=== PATIENT | female | born 1990 | race Caucasian/White ===

== ENCOUNTER 2019-05-31 03:20 | Outpatient (CLI) | payer BC, SELFPAY ==
[2019-05-31 04:02] VITALS: BMI 31.4
--- NOTE | 2019-06-06 23:39 | OB.TRI.NOTE ---
History of Present Illness Date of Service: 05/31/19 Was patient seen by the physician?: No Reason For Visit: RULE OUT LABOR Date of Service: 05/31/19 Final REZA: 06/13/19 Final REZA Source: US <20 weeks Gestational age: 39 Weeks and 0 Days Allergies No Known Allergies Allergy (Verified 05/31/19 04:03) NST - FHR Rate Baby A Baseline: 130 Variability:: Moderate Accelerations:: 15 x 15 Decelerations:: None NST Reactive:: Yes Uterine Activity:: Irregular Impression/Plan Reactive NST for false labor
== END 2019-05-31 04:10 | disposition home or self-care (01) ==
LOC: WPOUT 03:55 → WP 03:56
PROVIDERS: Visit Provider Obstetrics & Gynecology
DX: O47.1 False labor at or after 37 completed weeks of gestation (principal); Z3A.39 39 weeks gestation of pregnancy
CPT/HCPCS: 59025; 59050; 99218; G0378

== ENCOUNTER 2019-06-11 00:47 | Inpatient (IN) | payer BC, SELFPAY ==
[2019-06-11 00:38] VITALS: BMI 31.8
[2019-06-11 00:43] LABS: ROM Internal Control Test YES-OK TO RESULT pt. (Internal QC)
[2019-06-11 00:44] LABS: ROM Patient Test POSITIVE (Negative)
[2019-06-11] MEDS: Lactated Ringers 1,000 ML 50 ML IV ×3 (01:30→07:21)
[2019-06-11 01:47] LABS: Absolute Lymphocyte Count 2.57 X10^3/uL (0.83-4.51); Absolute Neutrophil Count 7.6 X10^3/uL (2.0-7.7); Basophil# 0.03 X10^3/uL; Basophil% 0.3 % (0-1); Eosinophil# 0.23 X10^3/uL; Hematocrit 34.4 % (37-47); Hemoglobin 11.8 g/dL (12.0-15.0); Lymphocyte # 2.57 X10^3/ul (4.0); Lymphocyte % 22.3 % (19-41); Mean Corp Hgb Conc 34.3 g/dL (32-36); Mean Corpuscular Hgb 30.3 pg (27.0-32.0); Mean Corpuscular Volume 88.4 fL (81-99); Mean Platelet Vol. 10.4 fl (6.2-12.0); Monocyte# 1.03 X10^3/uL; Monocyte% 8.9 % (0-10); NRBC Flagged by Analyzer 0 % (0-5); Neutrophil # 7.58 X10^3/uL (2.7-7.7); Neutrophil % 65.8 % (47-70); Platelet Count 218 K/mm3 (150-450); RBC Distribution Width CV 14.5 % (11.6-14.6); RBC Distribution Width SD 45.8 fl (35.1-43.9); Red Blood Count 3.89 M/mm3 (4.2-5.4); White Blood Count 11.5 K/mm3 (4.4-11.0)
[2019-06-11] MEDS: 0.9% Saline Lock 10 ML Syringe IV (02:09)
--- NOTE | 2019-06-11 02:25 | HP.PCM_ITS ---
History Date of Admission: 05/21/17 Final REZA: 06/13/19 Final REZA Source: LMP Gestational age: 39 Weeks and 5 Days History of this : This is a 29 year-old, 2 para 1-0-0-1 at 39-5/7 weeks gestation since complaining of spontaneous rupture membranes beginning approximately 9 PM on 06/10/2019. Her EDC is 06/13/2019 by last menstrual period confirmed by first trimester ultrasound. Her is uncomplicated to date. She is having some contractions and they are increasing in intensity. She denies any gross vaginal bleeding. She has a history of one previous spontaneous vaginal delivery 40 weeks 6 days of a 7 pound 10 ounce without complications. Allergies No Known Allergies Allergy (Verified 06/11/19 00:39) Home Medications: Home Medications Vit No.130/Iron/Folic [ Tablet] 1 tab PO DAILY 05/21/17 Smoking Status: Never smoker Alcohol: None Number of Fetus(es): 1 Heart Tracing: Normal baseline, moderate variability, spontaneous accelerations. No decelerations. Tocometer shows contractions that are somewhat irregular History Past Pregnancies: Past Pregnancies Delivery Date Name GA/Weeks Outcome Route Weight Gender Labor Length Anesthesia Delivery Location Provider FOB Expected Infant Delivery Method: Spontaneous Vaginal Review of Systems Constitutional: Denies: Chills, Fever Cardiovascular: Denies: Chest Pain Respiratory: Denies: Cough Genitourinary: Denies: Dysuria Skin: Denies: Rash Neurological: Denies: Slurred speech Psychiatric: Denies: Anxiety, Depression Hematologic/ Lymphatic: Denies: Hx of blood clot Physical Exam General: Alert, Cooperative, No apparent distress Cardiovascular: Regular Rhythm Lungs: Normal air movement Abdomen: Soft, Non-Distended, Gravid, Appropriate for Gestational Age Extremities:: Other - edema -trace MIDDLE STITCHER: Normal external genitalia Estimated gestational size: Appropriate for gestational size Presentation: Cephalic Cervix Dilation (cm): 2 - posterior, firm, forebag ruptured Station: -3 Effacement (%): 75 Assessment/Plan This is a 29 year-old, para 2 para 1 at 39-5/7 weeks gestation with spontaneous rupture membranes in early labor. Will initiate Pitocin augmentation. May have Nubain, nitrous oxide or epidural as needed for pain control. Estimated weight is less than 4500 g clinically and pelvis clinically adequate to expect vaginal delivery.
[2019-06-11] MEDS: Oxytocin 30 units/NS 500 ml 30 UNITS/500 ML IV.SOLN IV (03:08)
[2019-06-11 03:53] LABS: HIV - WCH Non-Reactive (Nonreactive)
[2019-06-11] MEDS: fentaNYL-bupivacaine (epidural) 100 ML BAG EPIDURAL (05:17)
[2019-06-11] MEDS: Oxytocin 30 units/NS 500 ml 30 UNITS/500 ML IV.SOLN 334 UNITS IV (10:56)
--- NOTE | 2019-06-11 11:12 | PCM.OPRPT ---
Vaginal Delivery Maternal Presentation: Active Labor Amniotic Membrane Rupture Type: Spontaneous at home Amniotic Fluid Description: Clear Final REZA: 06/13/19 Final REZA Source: US <20 weeks Gestational age: 39 Weeks and 5 Days Date of Procedure: 06/11/19 Pre-Operative Diagnosis: labor Post-Operative Diagnosis: same, mild shoulder dystocia Surgery/ Procedure Performed: Spontaneous Vaginal Delivery Type of Anesthesia: Epidural Description of Procedure: A vigorous male was delivered RAY over a second-degree perineal laceration. The shoulders did not immediately deliver with maternal pushing efforts. I had nurses reposition the patient's leg and had the patient push again. The anterior nor the posterior shoulder was delivered easily. And then had the patient placed in modified [place] position. The shoulder still did not dislodge. The right shoulder was the anterior shoulder. Suprapubic pressure was then initiated. I was able to reach my hand up and push the anterior shoulder slightly forward in the shoulder dislodged and then delivered easily. Total elapsed time from head delivery to shoulder delivery and delivery was 60 seconds. The Pitocin infusion was initiated for active management of the third stage. The cord was clamped and cut after 1 minute. The was attended to by the waiting nursing staff. The placenta was delivered spontaneously and intact. The cervix and vagina were intact. The second-degree perineal laceration was repaired with 3-0 Vicryl suture in a running standard fashion. Sponge and needle counts were correct. A vaginal sweep was completed by me. Presentation: RAY Placental Delivery Description: Spontaneous Placenta Disposition: [facility] Cord Vessel Description: 3 Vessels Cord Gases drawn per routine: ABG, VBG Cord Entanglement: None Drain: Douglass to straight drain Infant A gender: Male (1 minute): 7 (5 minute): 9 Episiotomy Description: None Laceration: 2nd degree Medications given after delivery: IV Pitocin Complications: None
[2019-06-11] MEDS: Oxytocin 30 units/NS 500 ml 30 UNITS/500 ML IV.SOLN 167 UNITS IV (11:26)
[2019-06-11 16:00] VITALS: BP 123/71; PULSE 93; RESP 16; TEMP 36.6
[2019-06-11] MEDS: Naproxen 250 MG Tablet 500 MG PO (17:43)
[2019-06-11 19:35] VITALS: BP 115/66; PULSE 90; RESP 20; TEMP 36.4
[2019-06-11] MEDS: Acetaminophen 500 MG Tablet 1000 MG PO (23:12)
[2019-06-11 23:15] VITALS: BP 119/68; PULSE 76; RESP 18; TEMP 36.3
[2019-06-12 04:35] VITALS: BP 89/54; PULSE 73; RESP 18; TEMP 36.3
--- NOTE | 2019-06-12 06:42 | PCM.PN.OB ---
Subjective: pain well controlled, average lochia - Physical Exam General: Alert, Cooperative, No apparent distress Vital Signs Temp Pulse Resp BP 97.4 F L 73 18 89/54 L 06/12/19 04:35 06/12/19 04:35 06/12/19 04:35 06/12/19 04:35 Oxygen Delivery Method Room Air Weight: 89.358 kg Body Mass Index (BMI) 31.8 Intake and Output for Last 24 Hours 06/10/19 06/11/19 06/12/19 23:59 23:59 23:59 Intake Total 3659 / 3659 Output Total 1900 / 1900 Balance 1759 / 1759 Medical Necessity - Tobacco Use Smoking Status: Never smoker Assessment/Plan PPD#1 s/p infant and doing well likely home today
--- NOTE | 2019-06-12 06:44 | DCINST_ITS ---
Discharge Diet: No Restrictions Discharge Activity: Return to Normal Activity, May not drive while taking narcotic pain medications., May Shower May resume sexual activity in: 4-6 weeks Additional Activity Instructions:: Nothing in the vagina for 4-6 weeks. You may return to work/school in 6 weeks. Call your doctor if your incision/area has: Continuous Slow Oozing, Sudden Increased Bleeding, Increased Pain/ Swelling, Increased Redness, Foul Smelling Discharge Additional Instructions: If you experience any of the following, contact your healthcare provider. * Bleeding that soaks a pad every hour for 2 hours * Fever 100.4 or higher * Unrelieved incision or abdominal pain * Swelling, redness, discharge or bleeding from your incision or episiotomy site * Your incision begins to separate * Problems urinating (including inability to urinate or burning while urinating). * Visual changes * Severe headache * Flu-like symptoms * Pain or redness in one of both of your breasts * Pain, warmth, tenderness or swelling in your legs, especially the calf area * Frequent nausea and vomiting * Symptoms of depression or anxiety If you experience any of the following, call 911 or go to the nearest Emergency Room. * Chest pain * Problems breathing * Seizure activity * Partial or complete paralysis of a body part, slurred speech, weakness or drooping of the face, or a sudden inability to walk or hold your balance Allergies/Adverse Reactions: Allergies No Known Allergies Allergy (Verified 06/11/19 00:39) Medications to take at Discharge Vit No.130/Iron/Folic [ Tablet] 1 tab PO DAILY 05/21/17 Ibuprofen [Motrin] 600 mg PO Q6H PRN #60 tab 06/12/19 The following prescriptions were given: Ibuprofen [Motrin] 600 mg PO Q6H PRN #60 tab PRN Reason: Pain Transmission Status: Pending to [id number] Please Follow Up With: Kavita Amaya MD - [phone] When: Call to make an appointment with your doctor in 1-2 and 6 weeks or as needed Test Results: Test results from this visit will be discussed in further detail at your follow- up appointment, if applicable.
[2019-06-12 09:44] VITALS: BP 116/59; PULSE 83; RESP 18; TEMP 36.6
[2019-06-12 14:00] VITALS: BP 118/56; PULSE 86; RESP 18; TEMP 36.9
== END 2019-06-12 17:30 | disposition home or self-care (01) | DRG 807 ==
LOC: WPOUT 00:52
PROVIDERS: Admitting Provider Obstetrics & Gynecology; Visit Provider Obstetrics & Gynecology
DX: O66.0 Obstructed labor due to shoulder dystocia (principal); Z37.0 Single live birth; O70.1 Second degree perineal laceration during delivery; Z3A.39 39 weeks gestation of pregnancy
CPT/HCPCS: 59025; 59050; 84112; 85025; 86703; 86850; 86900; 99218; J7120; A4216; G0378

== ENCOUNTER 2022-09-11 13:30 | Outpatient (CLI) | payer OTHER, SELFPAY ==
[2022-09-11 13:38] VITALS: BMI 31.9
[2022-09-11 13:57] VITALS: PULSE 110; TEMP 36.9; O2SAT 98
[2022-09-11 13:58] VITALS: BP 118/75; PULSE 114
[2022-09-11 14:27] LABS: ROM Internal Control Test YES-OK TO RESULT pt. (Internal QC); ROM Patient Test Negative (Negative)
--- NOTE | 2022-09-11 14:40 | OB.TRI.HP_ITS ---
HPI - General HPI Narrative PABLO TAPIA, is a 32 F at 34.6 weeks gestation who presents to triage with leaking of fluid. Patient reports starting yesterday she noticed some wetness in her underwear. Cannot tell if her water is leaking or urine. Continues to have sporadic leaking today. Denies any vaginal bleeding or contractions. Positive movement. No history of labor or deliveries. Current has been uncomplicated. Maternal Data Information REZA Calculator Estimated Delivery Date Method Current WG Current Estimate 10/17/22 Manual 34w 6d PFSH PFSH Home Medications vits no.130-ferrous fum 27 mg iron-folic acid 800 mcg tablet ( Vitamin) 1 tab PO DAILY 05/21/17 [History Last Taken 06/10/19] omeprazole 20 mg PO.IVFORM DAILY 09/11/22 [History Last Taken Unknown] Allergy/AdvReac Type Severity Reaction Status Date / Time No Known Allergies Allergy Verified 06/11/19 00:39 Social History Smoking Status: Never smoker History Elective abortions Hx Para 1 Spontaneous abortions Hx # Term Pregnancies Ectopic pregnancies Hx # Pregnancies Multiple births # of living children Visit Details OB Flowsheet Initial Weight: Not Recorded Date -?-?-?-?-?-?-?-?-?-?-?-?- EGA Weight BP Urine Prot -?-?-?-?-?-?-?-?-?-?-?-?- Glucose FHR FuHt Pres Dilation -?-?-?-?-?-?-?-?-?-?-?-?- Effaced St Visit Note 09/11/22 -?-?-?-?-?-?-?-?-?-?-?-?- 34w 6d 198 lb 118/75 -?-?-?-?-?-?-?-?-?-?-?-?- -?-?-?-?-?-?-?-?-?-?-?-?- ROS Eyes Eyes: Denies blurry vision Cardiovascular Cardiovascular: Reports none; Denies chest pain at rest, chest pain with activity or dizziness Respiratory/Chest Respiratory/Chest: Denies cough or dyspnea Gastrointestinal Gastrointestinal: Reports none and other; Denies diarrhea or vomiting Genitourinary Genitourinary: Denies dysuria Musculoskeletal Musculoskeletal: Reports none Integumentary Integumentary: Reports none; Denies rash Neurologic Neurologic: Denies dizziness, headache(s) or other visual disturbances Psychiatric Psychiatric: Reports none Physical Exam Const alert and no apparent distress General Appearance: cooperative Orientation / Consciousness: awake Exam Limitations: no limitations HEENT normocephalic Eyes General Eye: normal appearance of both eyes Neck full ROM Chest inspection of chest normal Resp normal respiratory effort and normal air movement Effort and Inspection: symmetric chest movement Auscultation: clear to auscultation bilaterally Cardio regular rate GI soft to palpation, non-tender and non-distended Inspection: and other Back/Spine normal ROM Extremity full ROM, normal capillary refill and no calf tenderness Skin no rashes or lesions noted Neuro oriented x3 and CN's II-XII intact bilaterally Psych mental status grossly normal Assessment & Plan (1) 34 weeks gestation of : (2) Leakage of amniotic fluid: PLAN: Plan Cat. 1 tracing - NST reactive 2 contractions noted via TOCO- patient denies feeling any of these contractions ROM plus- negative D/C home with follow up this week in office Dr. Amaya notified of patient status
== END 2022-09-11 14:45 | disposition home or self-care (01) ==
LOC: WPOUT 13:37 → WP 13:38
PROVIDERS: PCP Internal Medicine; Referring Provider Advanced Practice Midwife; Visit Provider Advanced Practice Midwife
DX: O42.913 Preterm premature rupture of membranes, unspecified as to length of time between rupture and onset of labor, third trimester (principal); O09.10 Supervision of pregnancy with history of ectopic pregnancy, unspecified trimester; Z3A.34 34 weeks gestation of pregnancy
CPT/HCPCS: 59025; 59050; 84112; 99218; G0378

== ENCOUNTER 2022-10-11 07:10 | Inpatient (IN) | payer OTHER, SELFPAY ==
[2022-10-11] VITALS (67 sets, daily range): BP systolic 73–145; BP diastolic 39–85; PULSE 72–126; TEMP 36.1–37.1; O2SAT 80–100; BMI 27.7
[2022-10-11] MEDS: Lactated Ringers 1,000 ML 50 ML IV (07:45)
[2022-10-11 08:05] LABS: Absolute Lymphocyte Count 2.34 X10^3/uL (0.83-4.51); Absolute Neutrophil Count 6.6 X10^3/uL (2.0-7.7); Basophil# 0.04 X10^3/uL; Basophil% 0.4 % (0-1); Eosinophil# 0.25 X10^3/uL; Eosinophils% 2.4 % (0-5); Hematocrit 34.7 % (37-47); Hemoglobin 11.8 g/dL (12.0-15.0); Lymphocyte # 2.34 X10^3/ul (0.83-4.51); Lymphocyte % 22.7 % (19-41); Mean Corpuscular Hgb 28.9 pg (27.0-32.0); Mean Corpuscular Volume 84.8 fL (81-99); Mean Platelet Vol. 9.7 fl (6.2-12.0); Monocyte# 1.06 X10^3/uL; Monocyte% 10.3 % (0-10); NRBC Flagged by Analyzer 0 % (0-5); Neutrophil # 6.59 X10^3/uL (2.7-7.7); Neutrophil % 63.7 % (47-70); Platelet Count 240 K/mm3 (150-450); RBC Distribution Width CV 13.7 % (11.6-14.6); RBC Distribution Width SD 41.9 fl (35.1-43.9); Red Blood Count 4.09 M/mm3 (4.2-5.4); White Blood Count 10.3 K/mm3 (4.4-11.0)
[2022-10-11] MEDS: 0.9% Normal Saline Single 100 ML IV.SOLN. INTRA-UTER (08:14)
[2022-10-11] MEDS: Oxytocin 15 Units/NS 250ml 15 UNITS/250 ML IV.SOLN 2 UNITS IV (08:25)
--- NOTE | 2022-10-11 11:28 | PCM.HP.OB ---
HPI - General General Date of Admission: 10/11/22 Date of Service: 10/11/22 Chief Complaint: labor HPI Narrative PABLO TAPIA, is a 32-year-old female 3 para 2 who presents for induction of labor due to history of shoulder dystocia, and LGA fetus by clinical assessment and ultrasound. She denies any vaginal bleeding or leaking of fluid. She is had a regular contractions. Her has been uncomplicated to date. Maternal Data Information REZA Calculator Estimated Delivery Date Method Current WG Current Estimate 10/17/22 Manual 39w 1d Final REZA: 10/18/22 Gestational age: 39 0/7 PFSH PFS Medical History (Updated 10/11/22 @ 11:[address] Kavita Amaya MD) Autoimmune disease Prolonged rupture of membranes, delivered Home Medications vits no.130-ferrous fum 27 mg iron-folic acid 800 mcg tablet ( Vitamin) 1 tab PO DAILY 05/21/17 [History Last Taken 10/10/22 21:00] omeprazole 20 mg PO.IVFORM DAILY 09/11/22 [History Last Taken 10/10/22 21:00] Allergy/AdvReac Type Severity Reaction Status Date / Time No Known Allergies Allergy Verified 06/11/19 00:39 Social History Smoking Status: Never smoker History Elective abortions Hx Para 2 Spontaneous abortions Hx # Term Pregnancies Ectopic pregnancies Hx # Pregnancies Multiple births # of living children ROS Constitutional Constitutional: Denies fatigue, fever(s) or malaise Eyes Eyes: Denies change in vision ENT HEENT: Denies dizziness or headache(s) Cardiovascular Cardiovascular: Denies chest pain, dyspnea or lightheadedness Respiratory/Chest Respiratory/Chest: Denies cough or dyspnea Gastrointestinal Gastrointestinal: Denies change in bowel habits Genitourinary Genitourinary: Denies burning urination or genital lesions Integumentary Integumentary: Denies rash Neurologic Neurologic: Denies confusion, dizziness, headache(s), numbness or weakness Vital Signs Vital Signs Vital Signs: 10/11/22 07:32 10/11/22 07:32 10/11/22 08:40 Temperature Temperature Source Temporal Pulse Rate 95 Blood Pressure 115/76 BP Systolic 115 BP Diastolic 76 10/11/22 08:40 10/11/22 08:40 Temperature 98.0 F Temperature Source Pulse Rate 95 Blood Pressure BP Systolic BP Diastolic Weight Weight: 80.286 kg Body Mass Index (BMI) 27.7 Physical Exam Const alert and no apparent distress General Appearance: cooperative HEENT normocephalic Resp normal respiratory effort Cardio regular rate GI soft to palpation GI Narrative: gravid, nontender, appropriate for gestational age Extremity no calf tenderness General Extremity: edema Skin no wounds Rashes: No rashes noted Psych activity/motor behavior normal Labs Labs Labs: Blood Type O POSITIVE Antibody Screen NEGATIVE Hct 34.7 % (37-47) L Hgb 11.8 g/dL (12.0-15.0) L HIV 1&2 Antibody Non-Reactive (Nonreactive) Rhogam given: No Assessment & Plan (1) 39 weeks gestation of : PLAN: Risk benefits and alternatives to elective induction of labor for history of shoulder dystocia and LGA fetus were discussed with patient, her questions were answered to her satisfaction she desires to proceed and consent was signed. She declines primary section. Primary section was not strongly clinically recommended as estimated weight is less than 5000 g. We reviewed even if this fetus is smaller there could still be a shoulder dystocia or a larger fetus may not have a shoulder dystocia. Patient understands and desires to proceed. Douglass catheter was placed for Douglass induction by Elis Smith this morning. Douglass is out. Artificial rupture membranes was performed with return of large amount of lightly meconium stained fluid. heart tones are reassuring. IUPC placed for Pitocin titration. Continue Pitocin titration. May have epidural or other pain control measures as indicated and as needed. (2) LGA (large for gestational age) fetus affecting mother, antepartum: (3) History of shoulder dystocia in prior :
[2022-10-11] MEDS: LACTATED RINGERS 500 ML 999 ML IV ×3 (14:40→20:41)
[2022-10-11] MEDS: fentaNYL-bupivacaine (epidural) 100 ML BAG EPIDURAL ×2 (16:02→20:19)
[2022-10-11] MEDS: Ondansetron 4 MG/2 ML Vial IV (16:51)
[2022-10-11] MEDS: Lactated Ringers 1,000 ML 200 ML IV (20:40)
[2022-10-11] MEDS: Oxytocin 10 UNITS/ML Vial IM (23:35)
[2022-10-11] MEDS: Methylergonovine 0.2 MG/ML Ampul IM (23:45)
--- NOTE | 2022-10-11 23:50 | EX.PCM.OBRPT ---
Assessment & Plan (1) (spontaneous vaginal delivery): (2) Single live : (3) Second degree perineal laceration during delivery: (4) 39 weeks gestation of : Maternal Data Information REZA Calculator Estimated Delivery Date Method Current WG Current Estimate 10/17/22 Manual 39w 1d Final REZA: 10/17/22 Gestational age: 39 1/7 Vaginal Delivery Maternal Presentation Maternal Presentation: Medically Indicated Induction Type of Induction: Pitocin, Douglass Bulb and Amniotomy Operative Information Date of Procedure: 10/11/22 Pre-Operative Diagnosis: labor Post-Operative Diagnosis: same Surgery / Procedure Performed: Spontaneous Vaginal Delivery Type of Anesthesia: Epidural Drain: Douglass to straight drain Estimated Blood Loss: 400 Time of Delivery: 23:33 Findings Description of Procedure: A vigorous female infant was delivered RAY over a second-degree perineal laceration. A loose nuchal cord ?1 was easily reduced. The remainder the was delivered with maternal pushing and gentle traction only in less than 15 seconds. The Pitocin infusion was initiated for active management of the third stage. The cord was clamped and cut after 1 minute. The infant was attended to by the waiting nursing staff. The placenta was delivered spontaneously and intact. The cervix and vagina were intact. The second-degree perineal laceration was repaired with 2-0 Vicryl suture in a running standard fashion. IM Pitocin was given. 1 dose of IM Methergine was given to help firm up the uterus. There was no atony or hemorrhage. Sponge and needle counts were correct. A vaginal sweep was completed by me. Presentation: RAY Amniotic Membrane Rupture Type: Artificial Amniotic Fluid Description: Lightly stained meconium Placental Delivery Description: Spontaneous Placenta Disposition: [facility] Cord Vessel Description: 3 Vessels Cord Entanglement: Around neck x 1, loose Nuchal Cord Compression: Without compression A Gender: Female (Silvia) (1 minute): 8 (5 minute): 9 Delayed Cord Clamping: Yes Post Vaginal Delivery Medications Given After Delivery: IV Pitocin Episiotomy Description: None Laceration: 2nd degree Complication Complications: None
[2022-10-12] VITALS (38 sets, daily range): BP systolic 104–127; BP diastolic 55–77; PULSE 66–116; RESP 16–18; TEMP 36.3–37.2; O2SAT 91–99
[2022-10-12] MEDS: Ondansetron 4 MG/2 ML Vial IV (00:43)
[2022-10-12] MEDS: proCHLORPERazine 10 MG/2 ML Vial IV (03:43)
[2022-10-12] MEDS: 0.9% Saline Lock 10 ML Syringe IV (03:45)
--- NOTE | 2022-10-12 08:22 | PCM.PROGNOTE ---
Subjective Subjective patient seen at bedside, doing well. Patient reports good pain control. lochia mild. Objective Data Objective Data Vital Signs: Vital Signs Temp Pulse Resp BP Pulse Ox 99 F 91 16 104/55 L 97 10/12/22 03:59 10/12/22 03:59 10/12/22 03:59 10/12/22 03:59 10/12/22 03:59 Weight: 80.286 kg Body Mass Index (BMI) 27.7 Intake & Output: Intake and Output for Last 24 Hours 10/10/22 10/11/22 10/12/22 23:59 23:59 23:59 Intake Total 3244.97 / 3244.97 Output Total 1400 / 1400 200 / 200 Balance 1844.97 / 1844.97 -200 / -200 Lab / Micro Data Result Diagrams: 10/11/22 07:45 Labs: Laboratory Results - last 24 hr 10/11/22 07:45: Blood Type O POSITIVE, Antibody Screen NEGATIVE Physical Exam Const alert and oriented x3 General Appearance: cooperative HEENT normocephalic Neck General: normal visual inspection GI soft to palpation and non-distended GI Narrative: Fundus firm Extremity normal to inspection and no calf tenderness Skin no rashes or lesions noted Neuro oriented x3 and CN's II-XII intact bilaterally Psych mental status grossly normal Assessment & Plan Assessment/Plan (1) Second degree perineal laceration during delivery: (2) Single live : (3) (spontaneous vaginal delivery): PLAN: Plan PPD#1 , Doing well Routine care pain mgmt ambulation
[2022-10-12] MEDS: Ibuprofen 600 MG Tablet PO ×2 (08:34→17:24)
--- NOTE | 2022-10-12 14:00 | NURSING ---
report given to julia navarro rn who will assume care of this patient at this time
[2022-10-12] MEDS: Ferrous Sulfate 325 MG Tablet PO (17:24)
[2022-10-12] MEDS: Acetaminophen 500 MG Tablet 1000 MG PO (20:53)
[2022-10-13 01:50] VITALS: BP 117/67; PULSE 75
[2022-10-13] MEDS: Ibuprofen 600 MG Tablet PO (01:54)
[2022-10-13 01:58] VITALS: BP 117/67; PULSE 75; RESP 16; TEMP 36.2
--- NOTE | 2022-10-13 07:51 | PCM.PN.OB ---
Subjective Subjective Doing well per patient and nursing staff. Ambulating and taking PO without difficulty. Voiding and passing flatus. Pain controlled. , services for assistance. Denies headache, visual changes, chest pain, shortness of breath, leg pain or increased bleeding. Lochia normal. Objective Data Objective Data Vital Signs: Vital Signs Temp Pulse Resp BP Pulse Ox O2 Del Method 97.2 F L 75 16 117/67 97 Room Air 10/13/22 01:58 10/13/22 01:58 10/13/22 01:58 10/13/22 01:58 10/12/22 08:34 10/12/22 08:34 Oxygen Delivery Method Room Air Weight: 177 lb Body Mass Index (BMI) 27.7 Intake & Output: Intake and Output for Last 24 Hours 10/11/22 10/12/22 10/13/22 23:59 23:59 23:59 Intake Total 3244.97 / 3244.97 Output Total 1400 / 1400 200 / 200 Balance 1844.97 / 1844.97 -200 / -200 Lab / Micro Data Result Diagrams: 10/11/22 07:45 Physical Exam Const alert and oriented x3 General Appearance: cooperative Orientation / Consciousness: awake, oriented to person, oriented to place and oriented to time Exam Limitations: no limitations HEENT normocephalic Head and Scalp: normal to inspection, normocephalic and atraumatic Face and Sinus: normal facial exam Eyes General Eye: normal appearance of both eyes Neck full ROM Chest Chest: symmetrical chest wall rise Resp normal respiratory effort and normal air movement Auscultation: clear to auscultation bilaterally Cardio regular rate, regular rhythm, S1 normal heart sound, S2 normal heart sound, no murmurs, no rub, no gallops and no clicks GI normal to inspection, nondistended, normoactive bowel sounds and non-tender Narrative: 2nd degree laceration well approximated, lochia rubra, no clots Bladder / Kidney Exam: no CVA tenderness Back/Spine normal ROM Extremity normal to inspection and full ROM Skin no rashes or lesions noted Neuro oriented x3, CN's II-XII intact bilaterally and moves all extremities Sensorium / Orientation: awake, alert and oriented to person Motor Exam: clonus absent Deep Tendon Reflexes: Rt Patellar (L4): 2+ and Lt Patellar (L4): 2+ Assessment & Plan (1) Second degree perineal laceration during delivery: (2) (spontaneous vaginal delivery): (3) Lactating mother: PLAN: Plan 1) Routine PP care 2) services 3) Vital signs stable 4) Pain controlled 5) D/C home
[2022-10-13 07:54] VITALS: BP 119/70; PULSE 73; RESP 16; TEMP 36.9; O2SAT 98
--- NOTE | 2022-10-13 07:54 | PCM.DC.SUM ---
Providers Date of Admission: 10/11/22 Primary Care Physician: Dr. Nitish Costa MD Reason For Visit: VAG Diagnosis Discharge Diagnosis (1) Second degree perineal laceration during delivery: Status: Acute Code(s): O70.1 - Second degree perineal laceration during delivery (2) (spontaneous vaginal delivery): Status: Acute Code(s): O80 - Encounter for full-term uncomplicated delivery (3) Lactating mother: Status: Acute Code(s): Z39.1 - Encounter for care and examination of lactating mother Plan 1) Routine PP care 2) services 3) Vital signs stable 4) Pain controlled 5) D/C home Medications at Discharge Home Medications vits no.130-ferrous fum 27 mg iron-folic acid 800 mcg tablet ( Vitamin) 1 tab PO DAILY 05/21/17 acetaminophen 500 mg tablet 1,000 mg PO Q6H PRN PRN Pain 1-10 Or Fever #0 tabs 10/13/22 ibuprofen 600 mg tablet 600 mg PO Q6H PRN PRN Pain Score 1-3 #0 tabs 10/13/22 Weight / BMI Weight Weight: 177 lb Body Mass Index (BMI) 27.7 ABG / Lab / Microbiology Data Result Diagrams: 10/11/22 07:45 Meaningful Use Info Meaningful Use Diagnoses (Choose all that apply): None applicable Discharge Plan Admission Admit Date/Time: 10/11/22 07:10 Primary Reason for Your Visit: Vaginal Discharge Attending Provider: Kavita Amaya Primary Care Provider: Nitish Costa Instructions Patient Instructions: After a Vaginal Discharge Orders/Prescriptions Prescriptions: New acetaminophen 500 mg Tablet 1,000 mg PO Q6H PRN PRN (Reason: Pain 1-10 Or Fever) Qty: 0 0RF ibuprofen 600 mg Tablet 600 mg PO Q6H PRN PRN (Reason: Pain Score 1-3) Qty: 0 0RF Continued Vitamin 1 EACH tablet 1 tab PO DAILY Discontinued omeprazole tablet 20 mg PO.IVFORM DAILY Referrals / Follow Up: Nitish Costa MD [Primary Care Provider] - Kavita Amaya MD [Med Staff - Active Staff] - Disposition Disposition (needs filled in before D/C Order can be placed): Home, Self Care
[2022-10-13 07:57] VITALS: BP 119/70; PULSE 73
[2022-10-13] MEDS: Acetaminophen 500 MG Tablet 1000 MG PO (08:23)
== END 2022-10-13 08:35 | disposition home or self-care (01) | DRG 807 ==
PROVIDERS: Advanced Practice Midwife; Admitting Provider Obstetrics & Gynecology; PCP Internal Medicine; Visit Provider Obstetrics & Gynecology
DX: O77.0 Labor and delivery complicated by meconium in amniotic fluid (principal); Z37.0 Single live birth; O69.81X0 Labor and delivery complicated by cord around neck, without compression, not applicable or unspecified; O70.1 Second degree perineal laceration during delivery; Z3A.39 39 weeks gestation of pregnancy
CPT/HCPCS: 59025; 59050; 85025; 86850; 86900; 86901; 99218; J7120; A4216; G0378; J2405

== ENCOUNTER → 2023-08-24 | Outpatient (CLI) | payer OTHER, SELFPAY ==
--- NOTE | 2023-08-24 08:39 | RAD_ITS ---
STUDY: X-RAY - ESOPHAGUS (BARIUM SWALLOW) WITH FLUOROSCOPY REASON FOR EXAM: Female, 33 years old. GERD TECHNIQUE: 17 view(s) of the esophagus were obtained following swallowing of barium. FLUOROSCOPY TIME (if supplied): (27 seconds) minutes/seconds. 7.66 mGy COMPARISON: None. FINDINGS: There is no demonstrated esophageal foreign body. There is no demonstrated stricture or mucosal abnormality. Normal gastroesophageal junction, without a demonstrated hiatal hernia. The patient ingested a 12 mm tablet at bedtime without any difficulty. Normal visualized aortic arch and descending thoracic aorta. Normal visualized pulmonary parenchyma. Normal visualized osseous structures of the thorax. RAD/Esophagus Dual Contrast IMPRESSION: Normal plain film x-ray examination (barium swallow) of the esophagus. Electronically Signed: Suleman Aguilar MD at 10:46 EDT ,
== END | disposition home or self-care (01) ==
LOC: RAD 08:38
PROVIDERS: PCP Internal Medicine; Referring Provider Internal Medicine; Visit Provider Internal Medicine
DX: K21.9 Gastro-esophageal reflux disease without esophagitis (principal)
CPT/HCPCS: 74221